=== PATIENT | male | born 1995 | race Caucasian/White ===

== ENCOUNTER 2019-05-14 16:34 | Emergency (ER) | payer SELFPAY ==
[~2019-05-14] VITALS: Ht 172.7 cm; Wt 59.0 kg
[2019-05-14 17:25] VITALS: BP 134/72
--- NOTE | 2019-05-14 17:26 | PHYS DOC ---
Adult General Chief Complaint Chief Complaint: SEXUALLY TRANSMITTED DISEASE HPI HPI Patient is a 24 year old male with no significant medical history who presents to the ED today requesting STD treatment specifically for gonorrhea. Patient states he has had penile discharge for a couple days and believes he has gonorrhea. He states his had unprotected sex. (AUBRIE BENJAMIN APRN) Review of Systems Review of Systems Constitutional: Denies fever or chills [] GI: Denies abdominal pain, nausea, vomiting, bloody stools or diarrhea [] :Reports penile discharge. STD treatment. Denies dysuria or hematuria [] Musculoskeletal: Denies back pain or joint pain [] Integument: Denies rash or skin lesions [] Neurologic: Denies headache, focal weakness or sensory changes [] All other systems were reviewed and found to be within normal limits, except as documented in this note. (AUBRIE BENJAMIN APRN) Current Medications Current Medications Current Medications Medications (Trade) Dose Ordered Sig/Artemio Start Time Stop Time Status Last Admin Dose Admin Azithromycin (Zithromax) 1,000 mg 1X ONCE 05/14/19 18:00 05/14/19 18:01 05/14/19 17:47 1,000 MG Ceftriaxone Sodium (Rocephin Im) 250 mg 1X ONCE 05/14/19 18:00 05/14/19 18:01 05/14/19 17:47 250 MG Metronidazole (Flagyl) 2,000 mg 1X ONCE 05/14/19 18:00 05/14/19 18:01 05/14/19 17:47 2,000 MG (FLO MENARD MD) Allergies Allergies Allergies Coded Allergies Type Severity Reaction Last Updated Verified No Known Drug Allergies 05/14/19 No (FLO MENARD MD) Physical Exam Physical Exam Constitutional: Well developed, well nourished, no acute distress, non-toxic appearance. [] HENT: Normocephalic, atraumatic, bilateral external ears normal, oropharynx moist, no oral exudates, nose normal. [] Eyes: PERRLA, EOMI, conjunctiva normal, no discharge. [] Neck: Normal range of motion, no tenderness, supple, no stridor. [] Cardiovascular:Heart rate regular rhythm, no murmur [] Lungs & Thorax: Bilateral breath sounds clear to auscultation [] Abdomen: Bowel sounds normal, soft, no tenderness, no masses, no pulsatile masses. [] Skin: Warm, dry, no erythema, no rash. [] Back: No tenderness, no CVA tenderness. [] Extremities: No tenderness, no cyanosis, no clubbing, ROM intact, no edema. [] Neurologic: Alert and oriented X 3, normal motor function, normal sensory function, no focal deficits noted. [] Psychologic: Affect normal, judgement normal, mood normal. [] (AUBRIE BENJAMIN APRN) Current Patient Data Vital Signs Vital Signs Date Time Temp Pulse Resp B/P (MAP) Pulse Ox O2 Delivery O2 Flow Rate FiO2 05/14/19 17:25 97.9 73 12 134/72 (92) 100 Room Air 97.9 (FLO MENARD MD) EKG EKG [] (AUBRIE BENJAMIN APRN) Radiology/Procedures Radiology/Procedures [] (AUBRIE BENJAMIN APRN) Course & Med Decision Making Course & Med Decision Making Pertinent Labs and Imaging studies reviewed. (See chart for details) This is a 24-year-old male patient who presents to the ED today requesting STD treatment. Patient was treated in the ED and education provided. (AUBRIE BENJAMIN APRN) Dragon Disclaimer Dragon Disclaimer This electronic medical record was generated, in whole or in part, using a voice recognition dictation system. (AUBRIE BENJAMIN APRN) Departure Departure Impression: Primary Impression: Concern about STD in male without diagnosis Disposition: 01 HOME, SELF-CARE Condition: STABLE Patient Instructions: Sexually Transmitted Disease Additional Instructions: You were treated in the emergency room for sexually transmitted diseases. Use protection at all times. Do not have any sexual intercourse for one week. Follow-up with the health department as needed. Attending Signature I have participated in the care of this patient and I have reviewed and agree with all pertinent clinical information above including history, exam, and recommendations. (FLO MENARD MD) AUBRIE BENJAMIN APRN May 14, 2019 17:26 FLO MENARD MD May 14, 2019 18:00
[2019-05-14] MEDS ORDERED: AZITHROMYCIN 250 MG TABLET. PO ONE (18:00)
[2019-05-14] MEDS ORDERED: metroNIDAZOLE 500 MG TABLET PO ONE (18:00)
[2019-05-14] MEDS ORDERED: cefTRIAXone IM 250 MG VIAL IM ONE (18:00)
== END 2019-05-14 17:48 | disposition home or self-care (01) ==
LOC: ER 16:34
DX: Z20.2 Contact with and (suspected) exposure to infections with a predominantly sexual mode of transmission (principal)
CPT/HCPCS: 96372; 99283; J0696; Q0144

== ENCOUNTER 2020-11-08 15:56 | Emergency (ER) | payer SELFPAY ==
[~2020-11-08] VITALS: Ht 167.6 cm; Wt 59.0 kg
[2020-11-08 17:03] VITALS: BP 117/65
[2020-11-08] MEDS ORDERED: DOXYCYCLINE HYCLATE 100 MG TABLET PO ONE (17:15)
[2020-11-08] MEDS ORDERED: metroNIDAZOLE 500 MG TABLET PO ONE (17:15)
[2020-11-08] MEDS ORDERED: cefTRIAXone IM 500 MG VIAL. IM ONE (17:15)
[2020-11-08] MEDS ORDERED: DOXY100T PO (18:27)
--- NOTE | 2020-11-08 18:28 | PHYS DOC ---
Past Medical History Past Medical History: No Pertinent History Past Surgical History: No Surgical History Smoking Status: Current Every Day Smoker Alcohol Use: Occasionally Drug Use: None General Adult EDM: Chief Complaint: SEXUALLY TRANSMITTED DISEASE HPI: HPI: Patient is a 25 year old male who presents to the ED today complaining of dysuria and penile discharge that began 2 days ago. Patient states he knows he has an STD and would like to be treated Review of Systems: Review of Systems: Constitutional: Denies fever or chills. [] : Reports penile discharge and dysuria. [] Musculoskeletal: Denies back pain or joint pain. [] Integument: Denies rash. [] Neurologic: Denies headache, focal weakness or sensory changes. [] Psychiatric: Denies depression or anxiety. [] Heart Score: C/O Chest Pain: N/A Risk Factors: Risk Factors: DM, Current or recent (<one month) smoker, HTN, HLP, family history of CAD, obesity. Risk Scores: Score 0 - 3: 2.5% MACE over next 6 weeks - Discharge Home Score 4 - 6: 20.3% MACE over next 6 weeks - Admit for Clinical Observation Score 7 - 10: 72.7% MACE over next 6 weeks - Early Invasive Strategies Current Medications: Current Medications Medications (Trade) Dose Ordered Sig/Artemio Start Time Stop Time Status Last Admin Dose Admin Ceftriaxone Sodium (Rocephin Im) 500 mg 1X ONCE 11/08/20 17:15 11/08/20 17:17 DC 11/08/20 18:17 500 MG Doxycycline Hyclate (Vibra-Tab) 100 mg 1X ONCE 11/08/20 17:15 11/08/20 17:17 DC 11/08/20 18:16 100 MG Metronidazole (Flagyl) 2,000 mg 1X ONCE 11/08/20 17:15 11/08/20 17:17 DC 11/08/20 18:17 2,000 MG Allergies: Allergies: Allergies Coded Allergies Type Severity Reaction Last Updated Verified No Known Drug Allergies 05/14/19 No Physical Exam: PE: Constitutional: Well developed, well nourished, no acute distress, non-toxic appearance. [] Skin: Warm, dry, no erythema, no rash. [] Back: No tenderness, no CVA tenderness. [] Extremities: No tenderness, no cyanosis, no clubbing, ROM intact, no edema. [] Neurologic: Alert and oriented X 3, normal motor function, normal sensory function, no focal deficits noted. [] Psychologic: Affect normal, judgement normal, mood normal. [] Current Patient Data: Vital Signs: Vital Signs Date Time Temp Pulse Resp B/P (MAP) Pulse Ox O2 Delivery O2 Flow Rate FiO2 11/08/20 17:03 98.3 79 16 117/65 (82) 96 98.3 EKG: EKG: [] Radiology/Procedures: Radiology/Procedures: [] Course & Med Decision Making: Course & Med Decision Making Pertinent Labs and Imaging studies reviewed. (See chart for details) This is a 25-year-old male patient presented to the ED today complaining of penile discharge and dysuria and requesting STD treatment. Patient was given the standard new CDC STD treatment and discharged on doxycycline. Education provided. Dragon Disclaimer: Dragon Disclaimer: This electronic medical record was generated, in whole or in part, using a voice recognition dictation system. Departure Departure Impression: Primary Impression: Concern about STD in male without diagnosis Disposition: 01 DC HOME SELF CARE/HOMELESS Condition: STABLE Referrals: NO PCP (PCP) follow up with the health department Patient Instructions: Sexually Transmitted Disease Additional Instructions: You were treated for sexually transmitted diseases, complete the prescribed antibiotics. Follow-up with the health department as needed. Come back to the ED at any point symptoms worsen Scripts Doxycycline Hyclate (DOXYCYCLINE HYCLATE) 100 Mg Tablet 1 TAB PO BID, #14 TAB Prov: AKOSUAErnieAUBRIE APRN 11/08/20 AUBRIE BENJAMIN APRN Nov 08, 2020 18:27
== END 2020-11-08 18:55 | disposition home or self-care (01) ==
LOC: ER 15:56
DX: R30.0 Dysuria (principal); Z20.2 Contact with and (suspected) exposure to infections with a predominantly sexual mode of transmission; R36.9 Urethral discharge, unspecified; F17.200 Nicotine dependence, unspecified, uncomplicated
CPT/HCPCS: 96372; 99283; J0696